=== PATIENT | male | born 1950 | race Caucasian/White ===

== ENCOUNTER 2016-12-02 22:52 | Observation (INO) | payer MEDICARE, OTHER ==
[~2016-12-02] VITALS: Ht 179.1 cm; Wt 116.3 kg
--- NOTE | ~2016-12-02 | HP ---
PATIENT'S NAME: ROLAND ORTEGA [facility] AGE: 66 Y [address] ROOM: [place] [address] LOCATION: GPCU ADMIT DATE: 12/03/2016 History & Physical DISCHARGE DATE: FAMILY PHYSICIAN: Saleem Lima MD ATTENDING PHYSICIAN: MICHAEL MORRELL V DATE OF SERVICE: CHIEF COMPLAINT: Altered mental status. HISTORY OF PRESENT ILLNESS: The patient is a transfer from [facility]. Most of the history is obtained from the transferring provider as well as from the records available at [facility] as the patient is not a very good historian. He is a 66- year-old male with past medical history of type 1 diabetes, on an insulin pump. Apparently, the patient was found to be unresponsive earlier in the evening. He had a perfusing pulse and was protecting his airway. Accu-Chek at the scene was 60. He was taken to the ER in [place]. There, he was found to be profoundly altered and had an Accu-Chek of 30. The patient received intravenous and oral glucose. A CAT scan of his head was unremarkable. With improvement in his glucose, he started to wake up and answered some questions. Remainder of the workup was unremarkable. A transfer to [facility] was requested for further neurological workup. The transfer was uneventful. At this point, the patient is moaning and groaning. While he was arousable, he answered some questions appropriately, but not others. He is not able to vocalize his specific complaints, though he is appropriate about certain questions. REVIEW OF SYSTEMS: All systems have been reviewed to the best of my ability, and he denies any chest pain, nausea, vomiting, diarrhea, or palpitations. PAST MEDICAL HISTORY: As reconstructed from the charts available at [facility] is type 1/insulin- dependent diabetes, hypertension, hyperlipidemia, retinopathy, arthritis, prostate cancer, longstanding insulin use, and history of coronary artery disease. SOCIAL HISTORY: At this point, I am unable to elicit a social history despite attempting to do so as the patient is quite altered. CURRENT MEDICATIONS: PATIENT'S NAME: ORLAND ORTEGA [facility] AGE: 66 Y [address] ROOM: [place] [address] LOCATION: GPCU ADMIT DATE: 12/03/2016 History & Physical DISCHARGE DATE: FAMILY PHYSICIAN: Saleem Lima MD ATTENDING PHYSICIAN: MICHAEL MORRELL V Include: 1. An insulin pump. 2. MS Contin 60 b.i.d. as well as [place] 7/500 several times a day. 3. Levothyroxine 25. 4. Lisinopril 40. 5. Omeprazole 20. 6. Zolpidem 10. 7. Simvastatin 20. 8. Lorazepam 0.5. 9. Glucagon as needed. 10. Magnesium 400 twice a day. 11. Fish oil. 12. Garlic. 13. Multivitamin. 14. Vitamin C. 15. Vitamin D. FAMILY HISTORY: Cannot be obtained due to altered mental status. PHYSICAL EXAMINATION: VITAL SIGNS: Heart rate in the 90s and regular, blood pressure is 136/64, saturating 96% on room air, afebrile, and respirations 16. GENERAL: Well-developed, well-nourished elderly male, moaning, but unable to verbalize his complaints. A and O x2. NEUROLOGIC: A neurologic exam appears to be grossly nonfocal, but the patient does have a history of right shoulder surgery and has weakness associated with the procedure. LYMPHATIC: Shows no cervical lymphadenopathy. ENDOCRINE: Shows no thyromegaly. LUNGS: Clear to auscultation. HEART: Rate is regular. No appreciable murmurs, gallops, or rubs. GI: Shows abdomen soft, nontender, and nondistended. : Reveals no costovertebral angle tenderness. VASCULAR: 2+ pedal pulses. MUSCULOSKELETAL: Shows multiple prior reconstructive surgeries as well as a prior shoulder surgery. No other abnormalities. SKIN: Warm and dry. LABORATORY DATA: Review of the studies from the outside facility is only significant for a transient hypoglycemia, and a CT of his head which shows there is some superficial swelling consistent with a blunt trauma to the forehead. ASSESSMENT AND PLAN: PATIENT'S NAME: ROLAND ORTEGA [facility] AGE: 66 Y [address] ROOM: [address] [address] LOCATION: GPCU ADMIT DATE: 12/03/2016 History & Physical DISCHARGE DATE: FAMILY PHYSICIAN: Saleem Lima MD ATTENDING PHYSICIAN: MICHAEL MORRELL V This is a 66-year-old male, who is being admitted with: 1. Encephalopathy. The underlying etiology for his encephalopathy could either be a seizure versus a hypoglycemic seizure versus cerebrovascular accident versus possible opioid/benzo overdose. At this point, the patient is improving with D10 drip, and we will continue to monitor him and maintain his blood glucose. We will check an MRI of his brain to rule out a cerebrovascular accident. We will request a Neurology evaluation as seizure is in the differential. In fact, I believe the patient is actually quite postictal right now. At this point, I do not believe starting him on antiepileptics is indicated. The seizure was most likely hypoglycemic, but we will await Neurology recommendations. 2. Insulin-dependent diabetes mellitus. We will put the patient on a sliding scale and request mis manager as they are familiar with this patient. 3. History of coronary artery disease. We will obtain an EKG and another set of cardiac enzymes and decide if further cardiac workup is needed. 4. High-dose opioid use along with benzodiazepine use. We will have to get additional information from his or PMD. 5. Additional management will depend on the clinical course. Time dedicated to this patient's encounter is 35 minutes. MD MINERVA TROY/kyleel /[id number] D: [id number] T: [id number] HISTORY & PHYSICAL
[2016-12-03] MEDS ORDERED: MORPHINE SULFAT60 M3 PO (02:13)
[2016-12-03] MEDS ORDERED: LEVOTHROID (SY25 MCG PO (02:15)
[2016-12-03] MEDS ORDERED: PERCOCET 7.5-31 EACH PO (02:15)
[2016-12-03] MEDS ORDERED: ZESTRIL40 MG PO (02:15)
[2016-12-03] MEDS ORDERED: ATIVAN 0.5MG0.5 MG PO (02:16)
[2016-12-03] MEDS ORDERED: ZOCOR20 MG PO (02:16)
[2016-12-03] MEDS ORDERED: PRILOSEC20 MG PO (02:16)
[2016-12-03] MEDS ORDERED: AMBIEN10 MG PO (02:16)
[2016-12-03] MEDS ORDERED: GLUCAGON 1 MG PE1 MG SUB-Q (02:17)
[2016-12-03] MEDS ORDERED: VITAMIN D1000 UNIT PO (02:18)
[2016-12-03] MEDS ORDERED: ASCORBIC ACID500 MG PO (02:18)
[2016-12-03] MEDS ORDERED: MAG-OX-400(241400 MG PO (02:18)
[2016-12-03] MEDS ORDERED: THERA-VITE W/ B1 TAB PO (02:19)
[2016-12-03] MEDS ORDERED: ASPIRIN LO-DOSE81 MG PO (02:19)
[2016-12-03] MEDS ORDERED: FISH OIL300 MG PO (02:19)
[2016-12-03] MEDS ORDERED: GARLIC1000 MG (02:20)
[2016-12-03] MEDS ORDERED: CLARITIN10 MG PO (02:21)
[2016-12-03 03:15] LABS: BASOPHIL % 0.1 %; EOSINOPHIL % 0.1 %; HEMATOCRIT 41.7 % (37.0-53.0); HEMOGLOBIN 14.3 g/dL (11.0-16.0); IMMATURE GRANULOCYTE % 0.3 %; LYMPHOCYTE # 0.9 K/uL (0.8-4.0); LYMPHOCYTE % 7.3 %; MCHC 34.3 gm/dL (32.0-36.5); MCV 87.6 fl (83.0-98.0); MONOCYTE # 0.4 K/uL (0.0-1.0); MONOCYTE % 3.4 %; MPV 10.1 fl (9.4-12.4); NEUTROPHIL # (ANC) 10.3 K/uL (1.4-9.0); NEUTROPHIL % 88.8 %; NRBC % 0 /100WBC (0-0.00); PLATELET COUNT 75 K/uL (150-450); RBC 4.76 M/uL (3.50-5.50); RDW-CV 13.2 % (11.9-14.6); WBC 11.6 K/uL (4.0-11.0)
[2016-12-03 03:31] LABS: ANION GAP 11.5 (10.0-19.0); BLOOD UREA NITROGEN 20 mg/dL (6-24); CALCIUM 8.4 mg/dL (8.5-10.5); CHLORIDE 105 mMol/L (96-110); CO2 25 mMol/L (22-32); CPK 419 IU/L (35-332); ESTIMATED GFR (MDRD EQUATION) > 60; PHOSPHORUS 3.9 mg/dL (2.5-4.9); POTASSIUM 4.5 mMol/L (3.7-5.1); SODIUM 137 mMol/L (135-145)
--- NOTE | 2016-12-03 05:33 | NUR ---
0120 PATIENT ARRIVES VIA [facility] AFTER BEING FOUNG UNRESPONSIVE AT HOME BY A FRIEND. BLOOD GLUCOSE LEVEL OF 31 IN THE ER. GLUCOSE ADMINISTERED AND PATIENT'S LEVELS RESPONDED WELL. PATIENT BEGAN TO COME AROUND ALTHOUGH CONTINUED TO HAVE SOME NEUROLOGICAL DEFICIT. CT SCAN, CARDIAC ENZYMES, EKG ALL NEGATIVE. HE WAS TRANSFERRED FOR NEUROLOGY CONSULT. UPON ARRIVAL PATIENT IS GRIMMACING AND IS NOT COOPERATIVE. HE DOES ANSWER SOME QUESTIONS APPROPRIATELY BUT IS HESITANT. PATIENT REPORTS HE DOES NOT KNOW HIS NAME BUT IS ABLE TO REPORT ALLERGIES AND HIS REACTIONS TO THOSE MEDICATIONS. SPOUSE SHOWS UP TO PROVIDE A MORE COMPLETE HISTORY. SHE WAS NOT PRESENT AT THE TIME OF INCIDENT.
--- NOTE | 2016-12-03 05:50 | NUR ---
Significant Event: PATIENT IS DROWSY AND ORIENTED TO PLACE AND TIME. UNABLE TO STATE HIS OWN NAME, OR RECALL WHAT OCCURRED PRIOR TO HOSPITALIZATION. SPOUSE REPORTS HE HAS BEEN EXPERIENCING SOME CONFUSION LATELY AND WAS GOING TO MAKE HIM A DR. APPOINTMENT TO ADDRESS THIS. NS INFUSING AT 75ML/HR X12 HOURS. Follow up:PATIENT TO HAVE MRI TODAY. NEED UA. PATIENT HAS NOT VOIDED SINCE ARRIVAL.
--- NOTE | 2016-12-03 09:00 | NUR ---
Diabetes Consult: Patient with a history of diabetes and utlizes an animas insulin pump was admitted with hypoglycemia. The patient's reports a neighbor found the patient unconscious at their home at 1800 yesterday. Initial blood sugar was 60, however she reports at one point his blood sugar was 30. The patient's reports being in [place] and out of town at the time. She reports the patient has a history of seizures with hypoglcyemic events. At this time, the patient is confused and will not be able to manage his insulin pump. The patient's expresses concern reporting the patient has been quick to anger lateley. Download of the insulin pump reveals only one blood sugar taken yesterday morning with a reading in the 80's. A copy of the pump download was placed in the chart for the physician to review as well as recommendations for dosing of subq injections based on pump settings. The patient is scheduled for an MRI today. Will continue to follow.
--- NOTE | 2016-12-03 12:08 | NUR ---
Introduced self and role of care management to patients as he is sleeping. They live in [place]. She states that he is able to do all his own ADL's. She does assist as needed. She plans on him returning home on discharge. She denies any needs at this time. Will continue to follow.
[2016-12-03 15:41] LABS: BILIRUBIN URINE NEGATIVE (NEGATIVE); BLOOD URINE NEGATIVE /UL (NEGATIVE); COLOR URINE YELLOW (YELLOW); GLUCOSE URINE 1000 mg/dL (NEGATIVE); KETONE URINE 15 mg/dL (NEGATIVE); LEUKOCYTES URINE NEGATIVE /UL (NEGATIVE); NITRITE URINE NEGATIVE (NEGATIVE); PROTEIN URINE NEGATIVE (NEGATIVE); SPEC GRAVITY URINE 1.015 (1.003-1.035); TURBIDITY URINE CLEAR (CLEAR); UROBILINOGEN URINE NORMAL (NORMAL)
--- NOTE | 2016-12-03 15:56 | NUR ---
Patient is more alert and is oriented x3. He was not alert and completely disoriented this am. VSS, on room air. 1 assist. ACHS accucheck on moderate sliding scale, started levemir BID today. Normallly has an insulin pump but it has been removed. Went down for MRI right away this morning and refused it. Rescheduled for this afternoon after some IV ativan given. Went down around 1545. Has chronic shoulder and back pain, takes MS contin BID. 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 UA was collected. Has a blister on his R) greater toe. Will continue to monitor BS.
--- NOTE | 2016-12-04 04:41 | NUR ---
Patient A/Ox3. VSS on RA. Up standby assist. Lungs clear. Bowel sounds present, 1BM this shift. Neuro (-). Percocet given at HS, generalized pain, with relief noted. Home today.
[2016-12-04 05:02] LABS: BASOPHIL # 0.1 K/uL (0.0-0.2); BASOPHIL % 0.7 %; EOSINOPHIL # 0.2 K/uL (0.0-0.5); EOSINOPHIL % 2.5 %; HEMATOCRIT 40.7 % (37.0-53.0); HEMOGLOBIN 13.5 g/dL (11.0-16.0); IMMATURE GRANULOCYTE % 0.2 %; LYMPHOCYTE # 2.2 K/uL (0.8-4.0); LYMPHOCYTE % 26.6 %; MCH 29.2 pg (27.0-34.0); MCHC 33.2 gm/dL (32.0-36.5); MCV 87.9 fl (83.0-98.0); MONOCYTE # 0.6 K/uL (0.0-1.0); MPV 8.5 fl (9.4-12.4); NEUTROPHIL # (ANC) 5.3 K/uL (1.4-9.0); NRBC % 0 /100WBC (0-0.00); RBC 4.63 M/uL (3.50-5.50); RDW-CV 13.6 % (11.9-14.6); WBC 8.4 K/uL (4.0-11.0)
[2016-12-04 05:06] LABS: PLATELET COUNT 211 K/uL (150-450)
[2016-12-04 05:20] LABS: ANION GAP 10.4 (10.0-19.0); BLOOD UREA NITROGEN 20 mg/dL (6-24); CHLORIDE 104 mMol/L (96-110); CO2 29 mMol/L (22-32); CREATININE 0.8 mg/dL (0.6-1.3); ESTIMATED GFR (MDRD EQUATION) > 60; MAGNESIUM 2.3 mg/dL (1.8-2.6); POTASSIUM 4.4 mMol/L (3.7-5.1); SODIUM 139 mMol/L (135-145)
--- NOTE | 2016-12-04 11:00 | NUR ---
Diabetes consult: Patient being discharged to home today. Orders were received to restart the patient on his insulin pump. Discussed pump rates with Dr. Herrera and recommended all basal rates be adjusted down by 10%. In addition, the patient received a Levemir injection of 10 units last evening and 10 units this morning. Patient will need a temporary basal rate of -80% started on his pump to offset the active basal insulin he was given subQ. Rates were adjusted, pump restarted and temp basal rate of -80% set to run until 0800 on 12/05. The patient did not bring his glasses, therefore his was given step by step instructions on how to set and cancel a temporary basal rate. I did have her set the rate and she was able to demonstrate understanding. In addition, the patient was given a copy of his basal rate changes and encouraged to take his rates to [facility] in the next week and have blood sugars reviewed. Blood sugar upon restarting the pump was 257. The patient did deliver a bolus of 5 units for his blood sugars without difficulty. The patient is alert and oriented and able to manage his insulin pump. He denies any questions.
--- NOTE | 2016-12-04 11:22 | NUR ---
pt dismissed to home with to drive. at time of dc pt is a/o pink warm and dry, DENIES NEEDS OR PAIN. LUNGS CLEAR ABDOMEN SOFT AND NONTENDER WITH PRESENT BOWEL SOUNDS. PULSES STRONG HE HAS NO EDEMA. STEADY ON FEET WHEN UP AND AROUND IN ROOM AND IN HALLS. DISMISSAL INSTRUCTIONS, MEDICATIONS MEDICATION INSTRUCTIONS, PRESCRIPTIONS, FOLLOW UP CARE AND APPOINTMENTS ALL WENT OVER WITH AND PT. VERBALIZES UNDERSTANDING, AND SIGNS DC PAPERWORK, PT PACED AROUND ROOM. WAS UPSET WITH HOW BAD THE TAPE HURT COMING OFF TO DC HIS IV AND DIDN'T LISTEN TO DC INSTRUCTIONS. AMBULATED TO FRONT WEST TOWER LOBBY DOORS FOR DC TO HOME.
== END 2016-12-04 11:15 | disposition disaster alternative care site (69) ==
LOC: GPCU 22:52
PROVIDERS: Hospitalist; ADMIT Internal Medicine
DX: G93.40 Encephalopathy, unspecified (principal); E11.9 Type 2 diabetes mellitus without complications; E10.649 Type 1 diabetes mellitus with hypoglycemia without coma; E78.5 Hyperlipidemia, unspecified; Z85.46 Personal history of malignant neoplasm of prostate; Z79.899 Other long term (current) drug therapy; Z79.82 Long term (current) use of aspirin; Z79.891 Long term (current) use of opiate analgesic; Z88.8 Allergy status to other drugs, medicaments and biological substances; Z88.2 Allergy status to sulfonamides; Z86.79 Personal history of other diseases of the circulatory system
CPT/HCPCS: G0378; J2060; J7030

== ENCOUNTER → 2016-12-02 | Outpatient (CLI) | payer MEDICARE, OTHER ==
[~2016-12-02] MED LIST: AMBIEN10 MG PO; ASCORBIC ACID500 MG PO; ASPIRIN LO-DOSE81 MG PO; ATIVAN 0.5MG0.5 MG PO; CLARITIN10 MG PO; FISH OIL300 MG PO; GARLIC1000 MG; GLUCAGON 1 MG PE1 MG SUB-Q; LEVOTHROID (SY25 MCG PO; MAG-OX-400(241400 MG PO; MORPHINE SULFAT60 M3 PO; PERCOCET 7.5-31 EACH PO; PRILOSEC20 MG PO; THERA-VITE W/ B1 TAB PO; VITAMIN D1000 UNIT PO; ZESTRIL40 MG PO; ZOCOR20 MG PO
== END | disposition disaster alternative care site (69) ==
LOC: GAMB 23:32
DX: E11.649 Type 2 diabetes mellitus with hypoglycemia without coma (principal); I25.10 Atherosclerotic heart disease of native coronary artery without angina pectoris; I10 Essential (primary) hypertension; E78.5 Hyperlipidemia, unspecified; M25.511 Pain in right shoulder; R11.2 Nausea with vomiting, unspecified; R32 Unspecified urinary incontinence; R41.82 Altered mental status, unspecified; Z79.82 Long term (current) use of aspirin; Z79.891 Long term (current) use of opiate analgesic; Z79.899 Other long term (current) drug therapy; Z88.2 Allergy status to sulfonamides
CPT/HCPCS: A0425; A0426